=== PATIENT | female | born 1985 | race Caucasian/White ===

== ENCOUNTER 2018-11-02 21:22 | Emergency (ER) | payer BC ==
[2018-11-02 21:40] VITALS: BP 129/64
--- NOTE | 2018-11-02 21:48 | PHYS DOC ---
Adult General Chief Complaint Chief Complaint: fall HPI HPI 33-year-old female presents after fall on the ice. Patient was walking out of the driveway when her feet slipped out and she landed on her right hip and then bounced her posterior head off of the driveway. She was not knocked unconscious. She did have a headache for a few hours today. It has improved. She did not take any medications. She also has some right-sided lumbar pain. Her relatives insisted that she come in and be checked out. Patient is not taking any blood thinners. She does not have any history of blood clotting disorders. She is not an alcoholic. She does not do drugs. She denies nausea, vomiting, dizziness, shortness of breath, fever, or chills. Review of Systems Review of Systems Constitutional: Denies fever or chills [] Eyes: Denies change in visual acuity, redness, or eye pain [] HENT: Denies nasal congestion or sore throat. Neck stiffness [] Respiratory: Denies cough or shortness of breath [] Cardiovascular: No additional information not addressed in HPI [] GI: Denies abdominal pain, nausea, vomiting, bloody stools or diarrhea [] : Denies dysuria or hematuria [] Musculoskeletal: Denies back pain or joint pain [] Integument: Denies rash or skin lesions [] Neurologic: Headache. Denies focal weakness or sensory changes [] Endocrine: Denies polyuria or polydipsia [] All other systems were reviewed and found to be within normal limits, except as documented in this note. Physical Exam Physical Exam Constitutional: Well developed, well nourished, no acute distress, non-toxic appearance. [] HENT: Normocephalic, atraumatic, bilateral external ears normal, oropharynx moist, no oral exudates, nose normal. [] Eyes: PERRLA, EOMI, conjunctiva normal, no discharge. [] Neck: Normal range of motion, paraspinal tenderness and muscle spasm, supple, no stridor. [] Cardiovascular:Heart rate regular rhythm, no murmur [] Lungs & Thorax: Bilateral breath sounds clear to auscultation [] Abdomen: Bowel sounds normal, soft, no tenderness, no masses, no pulsatile masses. [] Skin: Warm, dry, no erythema, no rash. [] Back: Has had a lumbar paraspinal tenderness, no CVA tenderness. [] Extremities: No tenderness, no cyanosis, no clubbing, ROM intact, no edema. [] Neurologic: Alert and oriented X 3, normal motor function, normal sensory function, no focal deficits noted. [] Psychologic: Affect normal, judgement normal, mood normal. [] EKG EKG [] Radiology/Procedures Radiology/Procedures [] Course & Med Decision Making Course & Med Decision Making Pertinent Labs and Imaging studies reviewed. (See chart for details) Patient's head CT is negative for acute findings. Lumbar spine x-rays do not show any fracture. There are some possible slight retrolisthesis of L3 on L4. I believe the patient just has a contusion and sore muscles from her fall. I recommended anti-inflammatory treatment with ibuprofen. She is stable for discharge at this time. [] Dragon Disclaimer Dragon Disclaimer This electronic medical record was generated, in whole or in part, using a voice recognition dictation system. Departure Departure: Impression: Primary Impression: Fall from slipping on ice Additional Impressions: Lumbar strain Closed head injury without loss of consciousness Disposition: 01 HOME, SELF-CARE Condition: STABLE Referrals: PCP,NO (PCP) Patient Instructions: Back Pain, Adult, [id number] Additional Instructions: Take ibuprofen 600 mg 3 times a day for the next couple of days to help with the stiffness and swelling. You can also take 650 mg of Tylenol 4 times a day for pain. These medications can be taken together. Problem Qualifiers Primary Impression: Fall from slipping on ice Encounter type: initial encounter Qualified Codes: W00.9XXA - Unspecified fall due to ice and snow, initial encounter Additional Impressions: Lumbar strain Encounter type: initial encounter Qualified Codes: S39.012A - Strain of muscle, fascia and tendon of lower back, initial encounter Closed head injury without loss of consciousness Encounter type: initial encounter Qualified Codes: S09.90XA - Unspecified injury of head, initial encounter TONYA WOLFE DO Nov 02, 2018 21:48
--- NOTE | 2018-11-02 22:28 | RAD ---
Examination: CT HEAD WO CONTRAST History: FALL ON ICE AND HIT BACK OF HEAD, HEADACHE Comparison/Correlation: None Findings: Axial images of the head were obtained without contrast. Ventricles are normal size. No intracranial hemorrhage, midline shift, or mass effect. No depressed fracture. Impression: No acute process. Electronically signed by: Ryder Lennon MD (11/02/2018 10:23 PM) [facility]
--- NOTE | 2018-11-03 00:13 | RAD ---
Examination: LUMBAR SPINE 2-3V History: FALL BACK ON ICE, LOW BACK PAIN Comparison/Correlation: None Findings: Frontal, lateral, and cone-down L5-S1 disc space lateral view was provided. Alignment is normal. Vertebral body heights are adequate. Disc spaces are unremarkable. No acute fracture or bony destructive finding. Transitional L5 appears to be present. Right upper quadrant surgical clips. Impression: No acute process. Electronically signed by: Ryder Lennon MD (11/03/2018 12:09 AM) [facility]
== END 2018-11-02 22:25 | disposition home or self-care (01) ==
LOC: ER 21:22
DX: S39.012A Strain of muscle, fascia and tendon of lower back, initial encounter (principal); S09.90XA Unspecified injury of head, initial encounter; R51 Headache; W00.0XXA Fall on same level due to ice and snow, initial encounter; Y93.01 Activity, walking, marching and hiking; Y92.89 Other specified places as the place of occurrence of the external cause; Y99.8 Other external cause status
CPT/HCPCS: 70450; 72100; 99284

== ENCOUNTER 2019-01-01 18:27 | Emergency (ER) | payer BC ==
[~2019-01-01] VITALS: Ht 167.6 cm; Wt 81.6 kg
[2019-01-01] MEDS ORDERED: PRED20TA PO (19:18)
[2019-01-01] MEDS ORDERED: CHLO15MO2 PO (19:18)
--- NOTE | 2019-01-01 19:18 | PHYS DOC ---
Past History Past Medical History: Migraines Past Surgical History: Cholecystectomy, Tubal ligation Additional Smoking Information: 1/2 PACK/DAY--NONE FOR 5 DAYS Alcohol Use: None Drug Use: None Adult General Chief Complaint Chief Complaint: DENTAL PROBLEM HPI HPI Patient is a 33 year old female who presents with facial swelling over her right maxillary premolar area with a dental abscess in the right upper gum line. Pt reports a cavity between two molars just below the abscess that has been present for about a year. She first noticed the abscess yesterday morning, along with a mild toothache. She took some Aleve, which did help with the pain. Today she noticed facial swelling upon waking. Pt went to the [facility]" around noon today and was prescribed Clindamycin 300mg. She took her first dose at 2pm. After waking from a nap at 4pm she noticed the facial swelling had increased, which prompted her to come to the ED. She denies any tooth or facial pain currently. She reports feeling pressure in her right nasopharynx, along with paresthesia's over her right maxillary area. She denies any fever, chills, nausea, or vomiting. Denies . Review of Systems Review of Systems Constitutional: Denies fever or chills [] Eyes: Denies change in visual acuity, redness, or eye pain [] HENT: Reports nasal pressure on right side. Denies dysphagia. Reports dentalgia and gum line swelling Respiratory: Denies cough or shortness of breath [] GI: Denies abdominal pain, nausea, vomiting, or diarrhea [] : Denies dysuria or hematuria [] Musculoskeletal: Denies back pain or joint pain [] Integument: Denies rash or skin lesions [] Neurologic: Denies headache, focal weakness or sensory changes [] Complete systems were reviewed and found to be within normal limits, except as documented in this note. Family History Family History Mom and Dad - Gingivitis and cavities. Allergies Allergies Allergies Coded Allergies Type Severity Reaction Last Updated Verified loratadine Allergy Unknown 11/02/18 Yes Physical Exam Physical Exam Constitutional: Well developed, well nourished, no acute distress, non-toxic appearance. [] HENT: Normocephalic, atraumatic, oropharynx moist, bilateral TMs stable, right maxillary 1st premolar gingival swelling and tenderness consistent for abscess noted, dental caries noted, prior tooth extractions noted throughout Eyes: Conjunctiva normal, no discharge. [] Neck: Normal range of motion, no tenderness, supple, no meningeal signs Cardiovascular: Heart rate regular rhythm, no murmur [] Lungs & Thorax: Bilateral breath sounds clear to auscultation [] Skin: Warm, dry, no erythema, no rash. [] Extremities: No tenderness, no deformity Neurologic: Alert and oriented X 3, speech normal Psychologic: Affect normal, judgement normal, mood normal. [] Current Patient Data Vital Signs Vital Signs Date Time Temp Pulse Resp B/P (MAP) Pulse Ox O2 Delivery O2 Flow Rate FiO2 01/01/19 18:35 98.4 82 16 97 Room Air EKG EKG [] Radiology/Procedures Radiology/Procedures [] Course & Med Decision Making Course & Med Decision Making Ms. Patel is a 33 yo female who presented to the ED with HPI and physical exam consistent for dental abscess. Patient previously started on antibiotics earlier today. Abscess was clearly noticeable on exam. Recommendation of Incision and Drainage, along with administration of steroids was made to patient. She elected to not have it incised and drained. The decision was then made to give her a one time dose of Dexamethasone, along with a once a day prescription of Prednisone x 4 days. Pt will continue regimen of Clindamycin 300mg, 3x/day for 8 days. An additional Rx for Peridex mouth rinse also provided. Pt stated understanding and consented to treatment plan. Patient stable for discharge with outpatient follow-up with PCP. Discussed findings and plan with patient and family, who acknowledge understanding and agreement. Dragon Disclaimer Dragon Disclaimer This electronic medical record was generated, in whole or in part, using a voice recognition dictation system. Departure Departure: Impression: Primary Impression: Periapical abscess Disposition: 01 HOME, SELF-CARE Condition: STABLE Referrals: PCP,NO (PCP) Patient Instructions: Dental Abscess Additional Instructions: Please continue previously prescribed antibiotics as directed until gone. Please call and make an appointment to see your dentist in the next 2-3 days. Scripts Prednisone (PREDNISONE) 20 Mg Tablet 2 TAB PO DAILY for dental swelling, #8 TAB Start this medication tomorrow, Wednesday01/02/19 Prov: VLADIMIR MORRISON DO 01/01/19 Chlorhexidine Gluconate (PERIDEX) 15 Ml Mouthwash 15 ML PO BID for dental infection, #946 ML Prov: VLADIMIR MORRISON DO 01/01/19 VLADIMIR MORRISON DO Jan 01, 2019 19:18
[2019-01-01 19:25] VITALS: BP 113/63
[2019-01-01] MEDS ORDERED: DEXAMETHASONE 4 MG TABLET PO ONE (19:45)
== END 2019-01-01 19:26 | disposition home or self-care (01) ==
LOC: ER 18:27
DX: K04.7 Periapical abscess without sinus (principal); K02.9 Dental caries, unspecified; G43.909 Migraine, unspecified, not intractable, without status migrainosus; F17.200 Nicotine dependence, unspecified, uncomplicated; Z88.8 Allergy status to other drugs, medicaments and biological substances
CPT/HCPCS: 99283; J8540

== ENCOUNTER 2019-09-30 21:54 | Emergency (ER) | payer BC ==
[~2019-09-30] VITALS: Ht 167.6 cm; Wt 87.5 kg
[~2019-09-30 21:54] MED LIST: CHLO15MO2 PO; PRED20TA PO
[2019-09-30 21:55] VITALS: BP 119/73
--- NOTE | 2019-09-30 22:39 | PHYS DOC ---
Past History Past Medical History: Migraines Past Surgical History: Cholecystectomy, Tubal ligation Alcohol Use: None Drug Use: None Adult General Chief Complaint Chief Complaint: LACERATION/AVULSION HPI HPI 34-year-old female presents with laceration of the left middle finger. The patient was cutting food for dinner when she cut her finger with a very sharp knife. She merely washed out with water. It bled a moderate amount. The patient presents tonight because she has been unable to get it to completely stop bleeding. She has put pressure on it on and off for the last one hour. She is not sure if it needs sutures. She would prefer not to have stitches. She denies any other injuries or complaints. Review of Systems Review of Systems Constitutional: Denies fever or chills [] Eyes: Denies change in visual acuity, redness, or eye pain [] HENT: Denies nasal congestion or sore throat [] Respiratory: Denies cough or shortness of breath [] Cardiovascular: No additional information not addressed in HPI [] GI: Denies abdominal pain, nausea, vomiting, bloody stools or diarrhea [] : Denies dysuria or hematuria [] Musculoskeletal: Denies back pain or joint pain [] Integument: One centimeter curved laceration of the left middle finger[] Neurologic: Denies headache, focal weakness or sensory changes [] Endocrine: Denies polyuria or polydipsia [] All other systems were reviewed and found to be within normal limits, except as documented in this note. Allergies Allergies Allergies Coded Allergies Type Severity Reaction Last Updated Verified loratadine Allergy Unknown 11/02/18 Yes Physical Exam Physical Exam Constitutional: Well developed, well nourished, no acute distress, non-toxic appearance. [] HENT: Normocephalic, atraumatic, bilateral external ears normal, oropharynx moist, no oral exudates, nose normal. [] Eyes: PERRLA, EOMI, conjunctiva normal, no discharge. [] Neck: Normal range of motion, no tenderness, supple, no stridor. [] Cardiovascular:Heart rate regular rhythm, no murmur [] Lungs & Thorax: Bilateral breath sounds clear to auscultation [] Abdomen: Bowel sounds normal, soft, no tenderness, no masses, no pulsatile masses. [] Skin: One centimeter curved laceration of the left middle finger [] Back: No tenderness, no CVA tenderness. [] Extremities: No tenderness, no cyanosis, no clubbing, ROM intact, no edema. [] Neurologic: Alert and oriented X 3, normal motor function, normal sensory function, no focal deficits noted. [] Psychologic: Affect normal, judgement normal, mood normal. [] EKG EKG [] Radiology/Procedures Radiology/Procedures [] Course & Med Decision Making Course & Med Decision Making Pertinent Labs and Imaging studies reviewed. (See chart for details) The wound was thoroughly irrigated prior to arrival. The patient's tetanus is not up-to-date. We will give a booster in the ED. We were able to get the patient's finger to stop bleeding with direct pressure. It was covered with a clean dry dressing. No suture repair was required. The patient is stable for discharge at this time. [] Dragon Disclaimer Dragon Disclaimer This electronic medical record was generated, in whole or in part, using a voice recognition dictation system. Departure Departure: Impression: Primary Impression: Laceration of left middle finger without damage to nail Disposition: 01 HOME, SELF-CARE Condition: IMPROVED Referrals: JAVY ROSALES (PCP) Patient Instructions: Tissue Adhesive Wound Care, [id number] Problem Qualifiers Primary Impression: Laceration of left middle finger without damage to nail Encounter type: initial encounter Foreign body presence: without foreign body Qualified Codes: S61.213A - Laceration without foreign body of left middle finger without damage to nail, initial encounter TONYA WOLFE DO Sep 30, 2019 22:39
[2019-09-30] MEDS: DIPHTH,PERTUSS(ACELL),TET TOX 0.5 ML DISP.SYRIN. VAX IM ONE (22:58)
== END 2019-09-30 23:03 | disposition home or self-care (01) ==
LOC: ER 21:54
DX: S61.213A Laceration without foreign body of left middle finger without damage to nail, initial encounter (principal); W26.0XXA Contact with knife, initial encounter; Y93.89 Activity, other specified; Y92.89 Other specified places as the place of occurrence of the external cause; Y99.8 Other external cause status; G43.909 Migraine, unspecified, not intractable, without status migrainosus; Z88.8 Allergy status to other drugs, medicaments and biological substances
CPT/HCPCS: 12001; 90471; 90715; 99283-25

== ENCOUNTER 2020-01-20 09:14 | Emergency (ER) | payer BC ==
[~2020-01-20] VITALS: Ht 167.6 cm; Wt 86.4 kg
[2020-01-20 09:23] VITALS: BP 123/71
--- NOTE | 2020-01-20 10:23 | PHYS DOC ---
Past History Past Medical History: High Cholesterol, Migraines Additional Past Medical Histor: HIGH TRIGLYCERIDES Past Surgical History: Cholecystectomy, Tubal ligation Alcohol Use: None Drug Use: None General Adult EDM: Chief Complaint: WOUND CHECK HPI: HPI: 34-year-old female presents for wound check and concern of packing. The patient had a cyst removed on the back of her neck yesterday by her primary care physician. She placed packing in it. The patient change her Band-Aid today and noticed that the wound was closed. She did not identify the packing falling out and is concerned that it might be inside the wound. She called her primary care physician's office, but her physician was not available today so she came to the ER to have it checked. Patient denies any pain, fever, or chills. Just wants to make sure is not a foreign body. Review of Systems: Review of Systems: Constitutional: Denies fever or chills Eyes: Denies change in visual acuity HENT: Denies nasal congestion or sore throat Respiratory: Denies cough or shortness of breath Cardiovascular: Denies chest pain or edema GI: Denies abdominal pain, nausea, vomiting, bloody stools or diarrhea : Denies dysuria Musculoskeletal: Denies back pain or joint pain Integument: I&D site posterior neck Neurologic: Denies headache, focal weakness or sensory changes Endocrine: Denies polyuria or polydipsia Lymphatic: Denies swollen glands Psychiatric: Denies depression or anxiety Heart Score: Risk Factors: Risk Factors: DM, Current or recent (<one month) smoker, HTN, HLP, family history of CAD, obesity. Risk Scores: Score 0 - 3: 2.5% MACE over next 6 weeks - Discharge Home Score 4 - 6: 20.3% MACE over next 6 weeks - Admit for Clinical Observation Score 7 - 10: 72.7% MACE over next 6 weeks - Early Invasive Strategies Allergies: Allergies: Allergies Coded Allergies Type Severity Reaction Last Updated Verified loratadine Allergy Unknown 11/02/18 Yes Physical Exam: PE: Constitutional: Well developed, well nourished, no acute distress, non-toxic appearance. [] HENT: Normocephalic, atraumatic, bilateral external ears normal, oropharynx moist, no oral exudates, nose normal. [] Eyes: PERRLA, EOMI, conjunctiva normal, no discharge. [] Neck: Normal range of motion, no tenderness, supple, no stridor. [] Cardiovascular:Heart rate regular rhythm, no murmur [] Lungs & Thorax: Bilateral breath sounds clear to auscultation [] Abdomen: Bowel sounds normal, soft, no tenderness, no masses, no pulsatile mas ses. [] Skin: 1.5 cm palpable area over healing incision on the posterior neck, no erythema or warmth. [] Back: No tenderness, no CVA tenderness. [] Extremities: No tenderness, no cyanosis, no clubbing, ROM intact, no edema. [] Neurologic: Alert and oriented X 3, normal motor function, normal sensory function, no focal deficits noted. [] Psychologic: Affect normal, judgement normal, mood normal. [] Current Patient Data: Vital Signs: Vital Signs Date Time Temp Pulse Resp B/P (MAP) Pulse Ox O2 Delivery O2 Flow Rate FiO2 01/20/20 09:23 98.2 90 16 123/71 (88) 99 Room Air EKG: EKG: [] Radiology/Procedures: Radiology/Procedures: [] Course & Med Decision Making: Course & Med Decision Making Pertinent Labs and Imaging studies reviewed. (See chart for details) I was able to gently tease open the incision with tweezers. I explored the wound I did not find any packing. I also ultrasounded the area and did not find any abnormal findings. The area was homogeneous on ultrasound. A small amount of fluid was initially expressed. It was not purulent. I covered the wound with a Band-Aid. She is stable for discharge at this time. [] Dragon Disclaimer: Roxanne Disclaimer: This electronic medical record was generated, in whole or in part, using a voice recognition dictation system. Departure Departure: Impression: Primary Impression: Encounter for post surgical wound check Disposition: HOME, SELF-CARE Condition: STABLE Referrals: JAVY ROSALES (PCP) Patient Instructions: Wound Check TONYA WOLFE DO Jan 20, 2020 10:23
== END 2020-01-20 10:26 | disposition home or self-care (01) ==
LOC: ER 09:14
DX: Z48.01 Encounter for change or removal of surgical wound dressing (principal); L72.8 Other follicular cysts of the skin and subcutaneous tissue; G43.909 Migraine, unspecified, not intractable, without status migrainosus; E78.00 Pure hypercholesterolemia, unspecified; Z88.8 Allergy status to other drugs, medicaments and biological substances
CPT/HCPCS: 99284

== ENCOUNTER 2020-08-22 07:10 | Emergency (ER) | payer BC ==
[~2020-08-22] VITALS: Ht 167.6 cm; Wt 84.0 kg
--- NOTE | 2020-08-22 08:11 | RAD ---
EXAM: AP View of the chest DATE: 08/22/2020 7:46 AM INDICATION: Reason: shob, cough, covid+ / Spl. Instructions: / History: COMPARISON: No Prior FINDINGS: The heart is not enlarged. Mediastinal and hilar contours are normal. No focal parenchymal airspace opacity. No pleural effusion or pneumothorax. IMPRESSION: 1. No radiographic evidence for acute cardiopulmonary process. Electronically signed by: Homar Samaniego MD (08/22/2020 8:08 AM) [id number]
--- NOTE | 2020-08-22 08:14 | PHYS DOC ---
Past History Past Medical History: High Cholesterol, Migraines Additional Past Medical Histor: HIGH TRIGLYCERIDES Past Surgical History: Cholecystectomy, Tubal ligation Alcohol Use: None Drug Use: None Adult General Chief Complaint Chief Complaint: SHORTNESS OF BREATH HPI HPI Patient is a 35yo female presenting for shortness of breath. Patient reports testing positive for covid August 05 and recently completed her 14-day quarantine. She experienced classic symptoms but reports significant improvement. She went back to work yesterday but reports continued fatigue, non- productive cough and shortness of breath with exertion. Nothing known makes better, activity and exposure to cold air and smoking make worse. She also reports dull headache focussed behind left eye that developed this morning prompting her to call into work and seek care at our ER. She has been afebrile, denies lightheadedness, chest pain, tearing chest pain, hemoptysis, productive cough, AP, n/v/d. Review of Systems Review of Systems Fourteen body systems of review of systems have been reviewed. See HPI for pertinent positives and negative responses, other espana all other systems are negative, non-pertinent or non-contributory Allergies Allergies Allergies Coded Allergies Type Severity Reaction Last Updated Verified loratadine Allergy Unknown 11/02/18 Yes Physical Exam Physical Exam Constitutional: Well developed, well nourished, no acute distress, non-toxic appearance. HENT: Normocephalic, atraumatic, bilateral external ears normal, oropharynx moist, no oral exudates, nose normal. Eyes: PERRLA, EOMI, conjunctiva normal, no discharge. Neck: Normal range of motion, no tenderness, supple, no stridor. Cardiovascular: Heart rate regular, sinus rhythm, no murmurs rubs or gallops Lungs & Thorax: Bilateral breath sounds clear to auscultation Abdomen: Bowel sounds normal, soft, no tenderness, no masses, no pulsatile masses. Nonsurgical abdomen, no peritoneal signs Skin: Warm, dry, no erythema, no rash. Back: No tenderness, no CVA tenderness. Extremities: No tenderness, no cyanosis, no clubbing, ROM intact, no edema. Neurologic: Alert and oriented X 3, grossly normal motor & sensory function, no focal deficits noted. Psychologic: Affect normal, judgement normal, mood normal. Current Patient Data Vital Signs Vital Signs Date Time Temp Pulse Resp B/P (MAP) Pulse Ox O2 Delivery O2 Flow Rate FiO2 11/12/20 08:41 98.2 111 18 135/91 (106) 99 EKG EKG EKG ordered and interpreted by myself at 0840 hrs. as sinus rhythm at 91 bpm, unremarkable intervals, no axis deviation, no ischemic findings, no STEMI Radiology/Procedures Radiology/Procedures PROCEDURE: CHEST AP ONLY EXAM: AP View of the chest DATE: 08/22/2020 7:46 AM INDICATION: Reason: shob, cough, covid+ / Spl. Instructions: / History: COMPARISON: No Prior FINDINGS: The heart is not enlarged. Mediastinal and hilar contours are normal. No focal parenchymal airspace opacity. No pleural effusion or pneumothorax. IMPRESSION: 1. No radiographic evidence for acute cardiopulmonary process. Electronically signed by: Homar Samaniego MD (08/22/2020 8:08 AM) [id number] Heart Score HEART Score for Chest Pain: HEART Score for Chest Pain Response (Comments) Value History Slighlty/Non-Suspicious 0 ECG Normal 0 Age < 45 0 Risk Factors 1 or 2 Risk Factors 1 Total 1 Risk Factors: Risk Factors: DM, Current or recent (<one month) smoker, HTN, HLP, family history of CAD, obesity. Risk Scores: Risk Factors: DM, Current or recent (<one month) smoker, HTN, HLP, family history of CAD, obesity. Course & Med Decision Making Course & Med Decision Making Based on the history, exam, and workup I dont suspect any other emergent cause of this presentation, such as pneumonia, acute coronary syndrome, congestive heart failure, or pneumothorax. Patient is tachycardic on arrival but this resolved after resting in room and calming her nerves. I addressed this and possibility of being in hypercoaguable state after recent COVID 19 infection as data on subsequent PEs is indeterminate. Risks include tobacco, obesity, and recent COVID 19 infection. Patient admits her anxiety, active caffeine consumption during ER visit, and Phenteramine for weight loss could also contribute to this. I recommended patient formal workup involving blood work (d-dimer) as she is not PERC negative. Risks and benefits of ED workup vs close PCP follow-up advised, patient deferred for outpatient follow-up. She is ambulatory, hemodynamically stable, well-appearing and jolly during exam so I feel this is a reasonable plan. I advised her to take her temperature daily, quit smoking, and obtain a pulse ox to measure O2 sat and pulse when checking temperature daily prior to PCP follow- up Strict return precautions discussed with good understanding by patient. All questions and concerns addressed prior to ED departure in stable condition. Dragon Disclaimer Dragon Disclaimer This electronic medical record was generated, in whole or in part, using a voice recognition dictation system. Departure Departure: Impression: Primary Impression: Headache Additional Impression: Shortness of breath Disposition: 01 DC HOME SELF CARE/HOMELESS Condition: STABLE Referrals: JAVY ROSALES (PCP) Patient Instructions: General Headache Without Cause, Shortness of Breath Additional Instructions: You have been evaluated in the Emergency Department today for headache and shortness of breath. Your evaluation was not suggestive of any emergent condition requiring medical intervention at this time. However, some problems make take more time to appear. Therefore, it is important for you to watch for any new symptoms or worsening of your current condition. Please keep your previously scheduled follow-up with your primary care physician this upcoming Wednesday. Return to the Emergency Department if you experience worsening pain, persistent fevers greater than 100.4, recurrent vomiting, blood in vomit, blood in stool, dark tarry stool, chest pain, difficulty breathing, worsening shortness of breath, or any other concerning symptoms. Problem Qualifiers PEEWEE CLEANING DO Aug 22, 2020 08:14
[2020-08-22 08:41] VITALS: BP 135/91
[2020-08-22] MEDS ORDERED: ACETAMINOPHEN 325 MG TABLET PO ONE (09:30)
--- NOTE | 2020-08-23 19:23 | EKG ---
[address] [address] Test Date: 2020-08-22 Test Time: 08:36:14 Pat Name: STEFAN LYMAN Department: Room: Gender: F Administration Clerk: ROSINA : 1985 Requested By: PEEWEE CLEANING Order Number: [id number] Reading MD: Tiago Colvin Measurements Intervals [place] Rate: 91 P: 49 WA: 118 QRS: 46 QRSD: 74 T: 46 QT: 344 QTc: 425 Interpretive Statements SINUS RHYTHM Electronically Signed On 08-24-2020 15:42:02 [employer] [employer] by Tiago Colvin
== END 2020-08-22 09:25 | disposition home or self-care (01) ==
LOC: ER 07:10
DX: G43.909 Migraine, unspecified, not intractable, without status migrainosus (principal); R06.02 Shortness of breath; R53.83 Other fatigue; E78.00 Pure hypercholesterolemia, unspecified; Z98.51 Tubal ligation status; Z90.49 Acquired absence of other specified parts of digestive tract; Z88.8 Allergy status to other drugs, medicaments and biological substances
CPT/HCPCS: 71045; 93005; 99283

== ENCOUNTER → 2021-03-17 | Outpatient (CLI) | payer BC ==
--- NOTE | 2021-03-17 14:59 | RAD ---
EXAM: 1. BILATERAL DIGITAL DIAGNOSTIC MAMMOGRAPHY. 2. LEFT BREAST ULTRASOUND. HISTORY: Infected focus with recurrent purulent drainage left nipple. TECHNIQUE: Bilateral full field digital images were obtained in CC and MLO projections. Computer-aide d detection was applied. Sonographic evaluation of the left nipple was performed. COMPARISON: None available. This is the baseline study. COMPOSITION: B. There are scattered areas of fibroglandular density. FINDINGS: Mammographically, there is no detectable abnormality at the nipple. There are no suspicious masses, microcalcifications or architectural distortion bilaterally. Sonography of the left nipple reveals a 2 mm hyperechoic focus underlying the inflamed site, which ma y be a small subcutaneous abscess or foreign body reaction. This lies 3 mm deep to the skin and does not extend into deeper tissues. There is no drainable collection. There are no dilated ducts or other suspicious sonographic finding. Images of the left axilla revealed no enlarged lymph nodes. BI-RADS CATEGORY 2: Benign. RECOMMENDATION: 1. The infected focus at the left nipple appears to be a cutaneous associated lesion, possibly with a 2 mm subcutaneous abscess or foreign body reaction. Correlate for Buitrago gland infection. Follow -up to resolution after treatment is recommended. 2. Continue screening mammography in one year or beginning at age 40 as indicated by risk factors. Electronically signed by: Radha Santana MD (03/17/2021 2:57 PM) [id number]
== END ==
LOC: MAMMO 13:49
PROVIDERS: ATTEND Physician Assistant Medical
DX: N64.52 Nipple discharge (principal)
CPT/HCPCS: 76641; 77066

== ENCOUNTER 2021-08-13 04:29 | Emergency (ER) | payer BC, OTHER ==
[~2021-08-13] VITALS: Ht 167.6 cm; Wt 84.0 kg
[2021-08-13 04:35] VITALS: BP 132/86
[2021-08-13] MEDS: HYDROcodone/APAP 5/325MG 1 TAB TABLET PO ONE (05:05)
[2021-08-13] MEDS: LIDOCAINE 1% Multi-Dose 20 ML VIAL. IJ ONE (05:13)
--- NOTE | 2021-08-13 05:13 | PHYS DOC ---
Past History Past Medical History: No Pertinent History Additional Past Medical Histor: HIGH TRIGLYCERIDES Past Surgical History: No Surgical History Alcohol Use: None Drug Use: None General Adult EDM: Chief Complaint: FINGER INJURY HPI: HPI: 36-year-old female presents with right pinky injury. 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 She had immediate pain. She noticed that she ruptured the skin and was bleeding. Bleeding was controlled prior to arrival. Patient is concerned about fracture and needs stitches. She denies any other injuries or complaints at this time. Her tetanus status is not certain. Review of Systems: Review of Systems: Constitutional: Denies fever or chills Eyes: Denies change in visual acuity HENT: Denies nasal congestion or sore throat Respiratory: Denies cough or shortness of breath Cardiovascular: Denies chest pain or edema GI: Denies abdominal pain, nausea, vomiting, bloody stools or diarrhea : Denies dysuria Musculoskeletal: Denies back pain or joint pain Integument: Laceration right little finger Neurologic: Denies headache, focal weakness or sensory changes Endocrine: Denies polyuria or polydipsia Lymphatic: Denies swollen glands Psychiatric: Denies depression or anxiety Current Medications: Current Meds: Current Medications Medications (Trade) Dose Ordered Sig/Nito Start Time Stop Time Status Last Admin Dose Admin Acetaminophen/ Hydrocodone Bitart (Lortab 5/325) 1 tab 1X ONCE 08/13/21 05:15 08/13/21 05:16 08/13/21 05:05 1 TAB Allergies: Allergies: Allergies Coded Allergies Type Severity Reaction Last Updated Verified loratadine Allergy Unknown 11/02/18 Yes Physical Exam: PE: Constitutional: Well developed, well nourished, no acute distress, non-toxic appearance. [] HENT: Normocephalic, atraumatic, bilateral external ears normal, oropharynx moist, no oral exudates, nose normal. [] Eyes: PERRLA, EOMI, conjunctiva normal, no discharge. [] Neck: Normal range of motion, no tenderness, supple, no stridor. [] Cardiovascular:Heart rate regular rhythm, no murmur [] Lungs & Thorax: Bilateral breath sounds clear to auscultation [] Abdomen: Bowel sounds normal, soft, no tenderness, no masses, no pulsatile masses. [] Skin: 1.5 cm laceration of the right little finger [] Back: No tenderness, no CVA tenderness. [] Extremities: No tenderness, no cyanosis, no clubbing, ROM intact, no edema. [] Neurologic: Alert and oriented X 3, normal motor function, normal sensory function, no focal deficits noted. [] Psychologic: Affect normal, judgement normal, mood normal. [] Current Patient Data: Vital Signs: Vital Signs Date Time Temp Pulse Resp B/P (MAP) Pulse Ox O2 Delivery O2 Flow Rate FiO2 08/13/21 05:05 18 99 Room Air 08/13/21 04:35 98.1 84 132/86 (101) EKG: EKG: [] Radiology/Procedures: Radiology/Procedures: [] Heart Score: C/O Chest Pain: N/A Risk Factors: Risk Factors: DM, Current or recent (<one month) smoker, HTN, HLP, family history of CAD, obesity. Risk Scores: Score 0 - 3: 2.5% MACE over next 6 weeks - Discharge Home Score 4 - 6: 20.3% MACE over next 6 weeks - Admit for Clinical Observation Score 7 - 10: 72.7% MACE over next 6 weeks - Early Invasive Strategies Course & Med Decision Making: Course & Med Decision Making Pertinent Labs and Imaging studies reviewed. (See chart for details) The patient had a very small fracture of the distal 2 weeks. No joint involvement. The skin is ruptured so this is an open fracture. I will treat the patient with oral Keflex. The patient's tetanus status is up-to-date.. I have repaired the wound with sutures. See note below for more details. [] Roxanne Disclaimer: Roxanne Disclaimer: This electronic medical record was generated, in whole or in part, using a voice recognition dictation system. Laceration Repair Lac Repair Indication: [] 1.5 cm laceration of the right little finger. Procedure: I obtained verbal consent from the patient for suture repair of her right little finger laceration. Wound was thoroughly irrigated with normal saline under pressure. No foreign bodies were found. The wound was anesthetized with 1% lidocaine without epinephrine. 1 cc was used. After good anesthesia was achieved, the wound was repaired with 5-0 Ethilon sutures. There were 4 sutures in interrupted fashion. Neurovascularly intact. A clean dry dressing was applied. Tetanus is up-to-date. Patient discharged on antibiotic. Total repaired wound length: 1.5 cm Other Items: None The patient tolerated the procedure well. Complications: None. Departure Departure: Impression: Primary Impression: Laceration of right little finger Qualified Codes: S61.316A - Laceration without foreign body of right little finger with damage to nail, initial encounter Additional Impression: Open fracture of distal phalanx of right little finger Qualified Codes: S62.636B - Displaced fracture of distal phalanx of right little finger, initial encounter for open fracture Disposition: 01 HOME / SELF CARE / HOMELESS Condition: IMPROVED Referrals: JAVY ROSALES (PCP) Patient Instructions: Finger Fracture, [id number], Sutured Wound Care, [id number] Scripts Cephalexin (CEPHALEXIN) 500 Mg Tablet 1 TAB PO TID for finger fracture for 7 Days, #21 TAB Prov: TONYA WOLFE DO 08/13/21 TONYA WOLFE DO Aug 13, 2021 05:13
--- NOTE | 2021-08-13 05:14 | RAD ---
XR FINGER(S)_RIGHT 2+VIEWS 08/13/2021 4:34 AM INDICATION: Injury to the fifth digit of the right and COMPARISON: None available. TECHNIQUE: 3 views of the fifth digit of the right hand are provided. FINDINGS/ IMPRESSION: There is a 2 mm ossific fragment along radial margin of the distal tuft of the fifth digit, donor sit e likely from the distal tuft. No intracranial involvement. There is distal soft tissue swelling. No definite subcutaneous gas or osseous erosion. No radiopaque foreign density. Electronically signed by: Petra Andino MD (08/13/2021 5:12 AM) [facility]
[2021-08-13] MEDS ORDERED: DIPH,PERTUSS(ACELL),TET VAC/PF 0.5 ML SYRINGE. VAX IM ONE (05:15)
[2021-08-13] MEDS ORDERED: CEPH500T PO (05:46)
[2021-08-13] MEDS: CEPHALEXIN 250 MG CAPSULE PO ONE (05:56)
== END 2021-08-13 06:00 | disposition home or self-care (01) ==
LOC: ER 04:29
DX: S62.636B Displaced fracture of distal phalanx of right little finger, initial encounter for open fracture (principal); W23.0XXA Caught, crushed, jammed, or pinched between moving objects, initial encounter; Y93.89 Activity, other specified; Y92.89 Other specified places as the place of occurrence of the external cause; Y99.8 Other external cause status
CPT/HCPCS: 12001; 73140; 99283-25

== ENCOUNTER 2021-08-22 07:42 | Emergency (ER) | payer OTHER ==
[~2021-08-22] VITALS: Ht 167.6 cm; Wt 84.0 kg
[~2021-08-22 07:42] MED LIST changes: +CEPH500T PO
[2021-08-22 08:00] VITALS: BP 105/75
--- NOTE | 2021-08-22 08:00 | PHYS DOC ---
Past History Past Medical History: No Pertinent History Additional Past Medical Histor: HIGH TRIGLYCERIDES Past Surgical History: No Surgical History Alcohol Use: None Drug Use: None General Adult EDM: Chief Complaint: suture removal HPI: HPI: 36-year-old female presents for suture removal. She has sutures in her left little finger. These were placed in this emergency room several days ago after she smashed in a door. She has had no complications. Review of Systems: Review of Systems: Constitutional: Denies fever or chills Eyes: Denies change in visual acuity HENT: Denies nasal congestion or sore throat Respiratory: Denies cough or shortness of breath Cardiovascular: Denies chest pain or edema GI: Denies abdominal pain, nausea, vomiting, bloody stools or diarrhea : Denies dysuria Musculoskeletal: Denies back pain or joint pain Integument: Sutures left little finger Neurologic: Denies headache, focal weakness or sensory changes Endocrine: Denies polyuria or polydipsia Lymphatic: Denies swollen glands Psychiatric: Denies depression or anxiety Allergies: Allergies: Allergies Coded Allergies Type Severity Reaction Last Updated Verified loratadine Allergy Unknown 11/02/18 Yes Physical Exam: PE: Constitutional: Well developed, well nourished, no acute distress, non-toxic appearance. [] HENT: Normocephalic, atraumatic, bilateral external ears normal, oropharynx moist, no oral exudates, nose normal. [] Eyes: PERRLA, EOMI, conjunctiva normal, no discharge. [] Neck: Normal range of motion, no tenderness, supple, no stridor. [] Cardiovascular: Heart rate regular rhythm, no murmur [] Lungs & Thorax: Bilateral breath sounds clear to auscultation [] Abdomen: Bowel sounds normal, soft, no tenderness, no masses, no pulsatile masses. [] Skin: 4 sutures with overlying scab of the left little finger [] Back: No tenderness, no CVA tenderness. [] Extremities: No tenderness, no cyanosis, no clubbing, ROM intact, no edema. [] Neurologic: Alert and oriented X 3, normal motor function, normal sensory function, no focal deficits noted. [] Psychologic: Affect normal, judgement normal, mood normal. [] EKG: EKG: [] Radiology/Procedures: Radiology/Procedures: [] Heart Score: C/O Chest Pain: N/A Risk Factors: Risk Factors: DM, Current or recent (<one month) smoker, HTN, HLP, family history of CAD, obesity. Risk Scores: Score 0 - 3: 2.5% MACE over next 6 weeks - Discharge Home Score 4 - 6: 20.3% MACE over next 6 weeks - Admit for Clinical Observation Score 7 - 10: 72.7% MACE over next 6 weeks - Early Invasive Strategies Course & Med Decision Making: Course & Med Decision Making Pertinent Labs and Imaging studies reviewed. (See chart for details) The sutures were placed by myself 9 days ago. The skin appears to have healed as expected. I removed the 4 sutures without complication. She is stable for discharge at this time. [] Dragon Disclaimer: Dragon Disclaimer: This electronic medical record was generated, in whole or in part, using a voice recognition dictation system. Departure Departure: Impression: Primary Impression: Encounter for removal of sutures Disposition: HOME / SELF CARE / HOMELESS Condition: STABLE Referrals: JAVY ROSALES (PCP) Patient Instructions: Suture Removal-Brief TONYA WOLFE DO Aug 22, 2021 08:00
== END 2021-08-22 08:00 | disposition home or self-care (01) ==
LOC: ER 07:42
DX: Z48.02 Encounter for removal of sutures (principal)
CPT/HCPCS: 99281